=== PATIENT | female | born 1945 | race Caucasian/White ===

== ENCOUNTER 2016-10-17 13:14 | Outpatient (CLI) | payer MEDICARE, OTHER | END 2016-10-17 13:15 | disposition critical access hospital (66) | DX: M25.512 Pain in left shoulder (principal); W01.0XXA Fall on same level from slipping, tripping and stumbling without subsequent striking against object, initial encounter; Y92.59 Other trade areas as the place of occurrence of the external cause | CPT/HCPCS: A0425; A0429 ==

== ENCOUNTER 2016-10-17 13:36 | Emergency (ER) | payer MEDICARE, OTHER ==
[2016-10-17] MEDS ORDERED: HYDROmorphone 1 MG/ML SYRINGE IM STA (13:42)
[2016-10-17] MEDS ORDERED: ONDANSETRON ODT 4 MG TABLET TL STA (13:42)
[2016-10-17] MEDS ORDERED: ONDANSETRON ODT 4 MG TABLET ONE ×2 (13:50→13:51)
[2016-10-17] MEDS ORDERED: HYDROmorphone 1 MG/ML SYRINGE ONE ×2 (13:50→14:27)
[2016-10-17] MEDS ORDERED: HYDROmorphone 1 MG/ML SYRINGE IVP STA (14:21)
[2016-10-17] MEDS ORDERED: PROPOFOL 200 MG/20 ML VIAL IVP ONE (15:57)
[2016-10-17] MEDS ORDERED: SODIUM CHLORIDE 0.9% 1,000 ML IV ONE (16:09)
[2016-10-17] MEDS ORDERED: PROPOFOL 200 MG/20 ML VIAL IVP STA (16:10)
== END 2016-10-17 17:09 | disposition home or self-care (01) ==
DX: S43.015A Anterior dislocation of left humerus, initial encounter (principal); W01.0XXA Fall on same level from slipping, tripping and stumbling without subsequent striking against object, initial encounter; M25.812 Other specified joint disorders, left shoulder
CPT/HCPCS: 23650; 73030; 94770; 99152; 99284; J1170; Q0162

== ENCOUNTER 2017-06-26 08:00 | Outpatient (CLI) | payer MEDICARE, OTHER ==
[2017-06-26 13:36] LABS: ALBUMIN 4.1 g/dL (3.2-5.5); ALBUMIN/GLOBULIN RATIO 1.2 (1.0-2.2); ALKALINE PHOSPHATASE 81 IU/L (42-121); ALT ALANINE AMINOTRANSFERASE 23 IU/L (10-60); AST ASPARTATE AMINOTRANSFERASE 23 IU/L (10-42); BILIRUBIN,TOTAL 0.5 mg/dL (0.2-1.0); BUN - BLOOD UREA NITROGEN 20 mg/dL (6-20); CARBON DIOXIDE - CO2 27 mmol/L (21-32); CHLORIDE 100 mmol/L (101-111); CHOL/HDL RATIO 4.7 (<4.4); CHOLESTEROL 147 mg/dL; CREATININE 0.9 mg/dL (0.4-1.0); GFR - MDRD 62 (>89); GLUCOSE 100 mg/dL (70-100); HDL CHOLESTEROL 31 mg/dL; LDL CHOLESTEROL,CALCULATED 83 mg/dL; LDL/HDL RATIO 2.7 (<4.4); SODIUM 135 mmol/L (135-145); TOTAL PROTEIN 7.5 g/dL (6.7-8.2); VLDL CHOLESTEROL 33 mg/dL
== END 2017-06-26 08:01 | disposition home or self-care (01) ==
LOC: LAB.WCP 08:00
PROVIDERS: ATTEND Physician Assistant Medical
DX: E03.9 Hypothyroidism, unspecified (principal); E78.2 Mixed hyperlipidemia; Z51.81 Encounter for therapeutic drug level monitoring; Z79.899 Other long term (current) drug therapy
CPT/HCPCS: 36415; 80053; 80061; 84443

== ENCOUNTER 2018-01-12 08:00 | Outpatient (CLI) | payer MEDICARE, OTHER ==
[2018-01-12 13:31] LABS: ALBUMIN 3.6 g/dL (3.2-5.5); ALBUMIN/GLOBULIN RATIO 0.9 (1.0-2.2); ALKALINE PHOSPHATASE 79 IU/L (42-121); ALT ALANINE AMINOTRANSFERASE 19 IU/L (10-60); AST ASPARTATE AMINOTRANSFERASE 22 IU/L (10-42); BUN - BLOOD UREA NITROGEN 18 mg/dL (6-20); CARBON DIOXIDE - CO2 26 mmol/L (21-32); CHLORIDE 100 mmol/L (101-111); CHOL/HDL RATIO 4.9 (<4.4); CHOLESTEROL 157 mg/dL; CREATININE 0.9 mg/dL (0.4-1.0); GFR - MDRD 61 (>89); GLUCOSE 98 mg/dL (70-100); HDL CHOLESTEROL 32 mg/dL; LDL CHOLESTEROL,CALCULATED 88 mg/dL; LDL/HDL RATIO 2.8 (<4.4); SODIUM 134 mmol/L (135-145); TOTAL PROTEIN 7.6 g/dL (6.7-8.2); VLDL CHOLESTEROL 37 mg/dL
[2018-01-12 13:55] LABS: BASOPHILS % (AUTO) 0.3 %; EOSINOPHILS # (AUTO) 0.3 10^3/uL (0.0-0.7); EOSINOPHILS % (AUTO) 2.9 %; HGB - HEMOGLOBIN 12.6 g/dL (12.0-16.0); LYMPHOCYTES # (AUTO) 3.4 10^3/uL (1.5-3.5); LYMPHOCYTES % (AUTO) 35.3 %; MEAN CORPUSCULAR HGB CONC 33.1 g/dL (32.0-36.0); MEAN CORPUSCULAR VOLUME 84.7 fL (81.0-99.0); MEAN PLATELET VOLUME 9.2 fL (7.9-10.8); MONOCYTES # (AUTO) 0.5 10^3/uL (0.0-1.0); MONOCYTES % (AUTO) 5.6 %; NEUTROPHILS # (AUTO) 5.3 10^3/uL (1.5-6.6); NEUTROPHILS % (AUTO) 55.9 %; PLT - PLATELET COUNT 308 10^3/uL (130-450); RED CELL DISTRIBUTION WIDTH 15.3 % (12.0-15.0); WHITE BLOOD COUNT 9.6 x10^3/uL (4.8-10.8)
[2018-01-12 14:26] LABS: RBC MORPHOLOGY (MULTIPLE) 2+ ANISOCYTOSIS (NORMAL)
[2018-01-13 13:17] LABS: HEPATITIS C ANTIBODY NON-REACTIVE (NON-REACTIVE)
== END 2018-01-12 08:01 | disposition home or self-care (01) ==
LOC: LAB.WCP 08:00
PROVIDERS: ATTEND Physician Assistant Medical
DX: E78.2 Mixed hyperlipidemia (principal); E03.9 Hypothyroidism, unspecified; H10.10 Acute atopic conjunctivitis, unspecified eye; Z11.59 Encounter for screening for other viral diseases
CPT/HCPCS: 36415; 80053; 80061; 83721; 84443; 85025; 86803

== ENCOUNTER 2018-03-09 10:37 | Outpatient (CLI) | payer MEDICARE, OTHER ==
--- NOTE | 2018-03-12 09:55 | Mammography Report ---
Reason: SCREENING MAMMO Procedure Date: 03/09/2018 Accession Number: [id number] / [id number] Procedure: FERDINAND - Screening Mammo Dig Bilat CPT Code: FULL RESULT: EXAM: Screening Mammo Dig Bilat DATE: 03/09/2018 11:59 AM CLINICAL HISTORY: 73-year-old female with history of benign lump removal in 1985 and family history of breast cancer in the mother at age 69. TECHNIQUE: Bilateral CC and MLO views were obtained. COMPARISON: 05/06/2016, 05/05/2015, 05/13/2013, 04/25/2012. FINDINGS: The breasts demonstrate scattered fibroglandular densities bilaterally. Post surgical changes including typically benign dystrophic calcifications are stable. There are coarse typically benign calcifications left breast. No suspicious masses, clustered microcalcifications, or regions of architectural distortion are identified. Evaluation of the left breast is incomplete as there is motion artifact degrading the left MLO view in the left CC view. IMPRESSION: Incomplete examination RECOMMENDATION: Additional evaluation as above. BIRADS CATEGORY 0: Incomplete examination STANDARD QUALIFYING STATEMENTS: 1. This examination was not reviewed with the aid of Computer-Aided Detection (CAD). 2. A negative or benign imaging report should not delay biopsy if clinically suspicious findings are present. Consider surgical consultation if warrented. More than 5% of cancers are not identified by imaging. 3. Dense breasts may obscure an underlying neoplasm.
== END 2018-03-09 10:38 | disposition home or self-care (01) ==
LOC: DI 10:37
PROVIDERS: ATTEND Radiology Diagnostic Radiology
DX: Z12.31 Encounter for screening mammogram for malignant neoplasm of breast (principal); Z80.3 Family history of malignant neoplasm of breast
CPT/HCPCS: 77067

== ENCOUNTER 2018-03-26 10:57 | Outpatient (CLI) | payer MEDICARE, OTHER ==
--- NOTE | 2018-04-10 14:18 | Mammography Report ---
Reason: TECH REPEAT - NO CHARGE - ROUTINE MAMMO Procedure Date: 03/26/2018 Accession Number: [id number] / [id number] Procedure: FERDINAND - Screening Mammo Dig Bilat CPT Code: FULL RESULT: FINDINGS: IMPRESSION: For results, please reference the 03/09/2018 addended screening mammogram report.
--- NOTE | 2018-04-10 14:20 | Mammography Report ---
Reason: TECH REPEAT - NO CHARGE - ROUTINE MAMMO Procedure Date: 03/26/2018 Accession Number: [id number] / [id number] Procedure: FERDINAND - No Charge Procedure CPT Code: FULL RESULT: FINDINGS: IMPRESSION: For results, please reference the 03/09/2018 addended screening mammogram report.
== END 2018-03-26 10:58 | disposition home or self-care (01) ==
LOC: DI 10:57
DX: Z12.31 Encounter for screening mammogram for malignant neoplasm of breast (principal); Z80.3 Family history of malignant neoplasm of breast
CPT/HCPCS: 77067

== ENCOUNTER 2019-04-10 15:16 | Outpatient (CLI) | payer MEDICARE, OTHER ==
--- NOTE | 2019-04-11 11:36 | Mammography Report ---
Reason: ROUTINE MAMMO Procedure Date: 04/10/2019 Accession Number: [id number] / [id number] Procedure: FERDINAND - Screening Mammo w/Charles CPT Code: FULL RESULT: EXAM: Screening Mammo w/Charles DATE: 04/10/2019 3:51 PM CLINICAL HISTORY: History of benign right breast surgery. For routine screening TECHNIQUE: (B) - Bilateral CC and MLO views were obtained. COMPARISON: 03/26/2018, 03/09/2018, 05/06/2016, 05/05/2015, 05/13/2013, 04/25/2012, 04/13/2011, 03/23/2010 PARENCHYMAL PATTERN: (A) - The breasts demonstrate scattered fibroglandular densities bilaterally. FINDINGS: No significant new findings. Postsurgical change with dystrophic calcifications right breast in the region of prior biopsy have slightly increased since preceding studies. Scattered benign-appearing punctate calcifications are stable. There are no suspicious masses, micro-calcifications, or new areas of distortion. IMPRESSION: Benign findings. BI-RADS category 2. RECOMMENDATION: (ANNUAL) - Recommend routine annual screening mammography. BI-RADS CATEGORY: (2) - Benign Findings. STANDARD QUALIFYING STATEMENTS: 1. This examination was not reviewed with the aid of Computer-Aided Detection (CAD). 2. A negative or benign imaging report should not preclude biopsy if clinically suspicious findings are present. 3. Dense breasts may obscure an underlying neoplasm. 4. This examination was reviewed with the aid of 3D breast imaging (tomosynthesis).
== END 2019-04-10 15:17 | disposition home or self-care (01) ==
LOC: DI 15:16
DX: Z12.31 Encounter for screening mammogram for malignant neoplasm of breast (principal)
CPT/HCPCS: 77063; 77067

== ENCOUNTER 2020-12-24 07:09 | Outpatient (CLI) | payer MEDICARE, OTHER ==
[2020-12-25 12:41] LABS: BASOPHILS # (AUTO) 0.1 10^3/uL (0.0-0.1); BASOPHILS % (AUTO) 0.7 %; EOSINOPHILS # (AUTO) 0.2 10^3/uL (0.0-0.7); EOSINOPHILS % (AUTO) 2.3 %; HCT - HEMATOCRIT 39.1 % (37.0-47.0); HGB - HEMOGLOBIN 12.5 g/dL (12.0-16.0); LYMPHOCYTES % (AUTO) 34.5 %; MEAN CORPUSCULAR HEMOGLOBIN 28.6 pg (27.0-31.0); MEAN CORPUSCULAR VOLUME 89.5 fL (81.0-99.0); MEAN PLATELET VOLUME 11.8 fL (7.9-10.8); MONOCYTES # (AUTO) 0.6 10^3/uL (0.0-1.0); MONOCYTES % (AUTO) 6.9 %; NEUTROPHILS # (AUTO) 4.7 10^3/uL (1.5-6.6); NEUTROPHILS % (AUTO) 55.4 %; PLT - PLATELET COUNT 326 10^3/uL (130-450); RED BLOOD COUNT 4.37 10^6/uL (4.20-5.40); RED CELL DISTRIBUTION WIDTH 14.7 % (12.0-15.0); WHITE BLOOD COUNT 8.6 x10^3/uL (4.8-10.8)
[2020-12-25 13:08] LABS: ALBUMIN 3.8 g/dL (3.2-5.5); ALBUMIN/GLOBULIN RATIO 1.1 (1.0-2.2); ALKALINE PHOSPHATASE 69 IU/L (42-121); ALT ALANINE AMINOTRANSFERASE 32 IU/L (10-60); AST ASPARTATE AMINOTRANSFERASE 28 IU/L (10-42); BILIRUBIN,TOTAL 0.9 mg/dL (0.2-1.0); BUN - BLOOD UREA NITROGEN 17 mg/dL (6-20); CALCIUM 9.3 mg/dL (8.5-10.3); CARBON DIOXIDE - CO2 29 mmol/L (21-32); CHLORIDE 101 mmol/L (101-111); CHOL/HDL RATIO 4.4 (<4.4); CHOLESTEROL 144 mg/dL; GFR - MDRD 54 (>89); GLUCOSE 101 mg/dL (70-100); HDL CHOLESTEROL 33 mg/dL; LDL CHOLESTEROL,CALCULATED 80 mg/dL; LDL/HDL RATIO 2.4 (<4.4); POTASSIUM 3.5 mmol/L (3.5-5.0); SODIUM 140 mmol/L (135-145); TOTAL PROTEIN 7.2 g/dL (6.7-8.2); TRIGLYCERIDES 153 mg/dL; VLDL CHOLESTEROL 31 mg/dL
[2020-12-25 13:10] LABS: THYROID STIMULATING HORMONE 3.74 uIU/mL (0.34-5.60)
== END 2020-12-25 23:59 | disposition home or self-care (01) ==
LOC: LAB.WCP 07:09
PROVIDERS: ATTEND Physician Assistant Medical
DX: E78.2 Mixed hyperlipidemia (principal); E03.9 Hypothyroidism, unspecified; I10 Essential (primary) hypertension
CPT/HCPCS: 36415; 80053; 80061; 83721; 84443; 85025

== ENCOUNTER 2021-01-01 00:56 | Outpatient (CLI) | payer MEDICARE, OTHER | END 2021-01-01 00:57 | disposition critical access hospital (66) | LOC: EMS 00:56 | DX: R05 Cough (principal); R06.02 Shortness of breath; R06.2 Wheezing; R23.1 Pallor | CPT/HCPCS: A0425; A0427 ==

== ENCOUNTER 2021-01-01 01:09 | Inpatient (IN) | payer MEDICARE, OTHER ==
--- NOTE | 2021-01-01 01:26 | ED Physician Documentation ---
PD HPI DYSPNEA - Stated complaint Stated Complaint: SOA - Chief complaint Chief Complaint: Critical Care - History obtained from History obtained from: Patient, Family, EMS - History of Present Illness Timing - onset: How many days ago (2-3) Timing - onset during: Rest Timing - details: Gradual onset, Waxing and waning Pain level max: 0 Pain level now: 0 Improved by: O2, Rest, Sitting up Worsened by: Exertion Associated symptoms: No: Fever, Cough, Hemoptysis, Wheezing, Chest pain / discomfort, Palpitations, Diaphoresis, Bilateral edema, Unilateral edema Similar symptoms before: Has not had sx before Recently seen: Not recently seen - Additional information Additional information: BIBA. Patient is in severe respiratory distress on arrival, cannot contribute to H+P/ROS (answers few questions with nodding/shaking head yes/no) Per EMS, patient called 911 tonight due to severe dyspnea that occurred when walking from bed to bathroom. EMS arrived to find patient tripoding, 80% pulse ox on room air, and had near-syncopal episode during initial assessment. Patient is not COVID vaccinated. She has h/o asthma and thus EMS gave duoneb en route followed by two albuterol nebs. Also given 125mg Solu-Medrol. Pulse ox improved to upper 80s-lower 90s, although on ED arrival she immediately desaturates just from transferring from EMS stretcher to ED stretcher. She is unable to speak even a word at a time. With placement of 100% NRB (15 l/min), her pulse ox improves to lower 90s Review of Systems Unable to obtain: Other (limited due to severe respiratory distress) Constitutional: denies: Fever Cardiac: denies: Chest pain / pressure, Pedal edema Respiratory: reports: Dyspnea. denies: Cough Musculoskeletal: denies: Extremity swelling PD PAST MEDICAL HISTORY - Past Medical History Cardiovascular: None Respiratory: None Endocrine/Autoimmune: None - Past Surgical History Past Surgical History: No - Present Medications Home Medications: Ambulatory Orders Medication Instructions Recorded Confirmed Albuterol Sulf [Ventolin Hfa 1 - 2 puffs INH Q4HR PRN 01/01/21 01/01/21 Inhaler] Aspirin EC [Ecotrin] 81 mg PO DAILY 01/01/21 01/01/21 Levothyroxine [Synthroid] 50 mcg PO QDAC 01/01/21 01/01/21 Metoprolol/Hydrochlorothiazide 1 each PO DAILY 01/01/21 01/01/21 [Lopressor Hct 50-25 Tablet] Simvastatin [Zocor] 20 mg PO DAILY 01/01/21 01/01/21 - Allergies Allergies/Adverse Reactions: Allergies Allergy/AdvReac Type Severity Reaction Status Date / Time No Known Drug Allergies Allergy Verified 10/17/16 13:43 - Social History Does the pt smoke?: No Smoking Status: Never smoker - Immunizations Immunizations are current?: Yes PD ED PE NORMAL - Vitals Vital signs reviewed: Yes - General General: Alert and oriented X 3, Well developed/nourished - Neck Neck: Supple, no meningeal sign - Abdomen Abdomen: Soft, Non tender - Extremities Extremities: No edema - Neuro Eye Opening: Spontaneous Motor: Obeys Commands Verbal: Oriented GCS Score: 15 PD ED PE EXPANDED - General General: Other (severe respiratory distress, anxious at times and trying to remove oxygen but she is redirectable) - Cardiac Cardiac: Tachy, Regular Rhythm - Respiratory Respiratory: Distress, Labored, Gasping, Accessory mm use, Rales (bilateral, diffusely) - Derm Derm: Pale, Diaphoretic Results - Vitals Vitals: Vital Signs - 24 hr 01/01/21 01/01/21 01/01/21 01:18 01:27 01:38 Temperature 36.7 C Heart Rate 102 H 123 H 121 H Respiratory 30 H 30 H Rate Blood Pressure 138/98 H 152/105 H O2 Saturation 83 L 95 01/01/21 01/01/21 02:15 03:20 Temperature Heart Rate 99 88 Respiratory 27 H Rate Blood Pressure 149/96 H O2 Saturation 95 Oxygen O2 Source Room air - EKG (time done) No standard instances Rate: Rate (enter#) (96) Rhythm: NSR, LAE [place]: Normal Intervals: Normal VA QRS: Normal Ischemia: ST depression (V5, V6, I, aVL), Q waves (V1-V3) - Labs Labs: Laboratory Tests 01/01/21 01/01/21 01/01/21 00:50 01:22 01:35 WBC 14.6 H RBC 4.25 Hgb 12.1 Hct 38.0 MCV 89.4 MCH 28.5 MCHC 31.8 L RDW 14.7 Plt Count 297 MPV 11.1 H Neut # (Auto) Not Reportable Lymph # (Auto) Not Reportable Moore # (Auto) Not Reportable Eos # (Auto) Not Reportable Baso # (Auto) Not Reportable Absolute Nucleated RBC Not Reportable Total Counted 100 Band Neuts % (Manual) 0 Abnorm Lymph % (Manual) 0 Nucleated RBC % Not Reportable Neutrophils # (Manual) 7.9 H Lymphocytes # (Manual) 6.0 H Monocytes # (Manual) 0.4 Eosinophils # (Manual) 0.3 Basophils # (Manual) 0.0 Differential Comment MANUAL DIFFERENTIAL WBC Morphology NORMAL APPEARANCE Platelet Estimate NORMAL (130-450,000) Platelet Morphology NORMAL APPEARANCE RBC Morph Micro Appear NORMAL APPEARANCE VBG pH VBG pCO2 VBG pO2 VBG HCO3 VBG Total CO2 VBG O2 Saturation VBG Base Excess Sodium Potassium Chloride Carbon Dioxide Anion Gap BUN Creatinine Estimated GFR (MDRD) Glucose Calcium Total Bilirubin AST ALT Alkaline Phosphatase Troponin I High Sens B-Natriuretic Peptide Total Protein Albumin Globulin Albumin/Globulin Ratio Lipase Nasal Adenovirus (PCR) NOT DETECTED Nasal B. parapertussis DNA (PCR) NOT DETECTED Nasal Coronavir 229E PCR NOT DETECTED Nasal Coronavir HKU1 PCR NOT DETECTED Nasal Coronavir NL63 PCR NOT DETECTED Nasal Coronavir OC43 PCR NOT DETECTED Nasal Enterovir/Rhinovir PCR NOT DETECTED Nasal Influenza B PCR NOT DETECTED Nasal Influenza A PCR NOT DETECTED Nasal Parainfluen 1 PCR NOT DETECTED Nasal Parainfluen 2 PCR NOT DETECTED Nasal Parainfluen 3 PCR NOT DETECTED Nasal Parainfluen 4 PCR NOT DETECTED Nasal RSV (PCR) NOT DETECTED Nasal Screen MRSA (PCR) NEGATIVE Nasal B.pertussis DNA PCR NOT DETECTED Nasal C.pneumoniae (PCR) NOT DETECTED Azael Human Metapneumo PCR NOT DETECTED Nasal M.pneumoniae (PCR) NOT DETECTED Nasal SARS-CoV-2 (PCR) NOT DETECTED 01/01/21 01/01/21 01/01/21 01:35 01:35 01:35 WBC RBC Hgb Hct MCV MCH MCHC RDW Plt Count MPV Neut # (Auto) Lymph # (Auto) Moore # (Auto) Eos # (Auto) Baso # (Auto) Absolute Nucleated RBC Total Counted Band Neuts % (Manual) Abnorm Lymph % (Manual) Nucleated RBC % Neutrophils # (Manual) Lymphocytes # (Manual) Monocytes # (Manual) Eosinophils # (Manual) Basophils # (Manual) Differential Comment WBC Morphology Platelet Estimate Platelet Morphology RBC Morph Micro Appear VBG pH 7.263 L VBG pCO2 39.0 L VBG pO2 117.6 H VBG HCO3 17.2 L VBG Total CO2 18.4 L VBG O2 Saturation 97.9 H VBG Base Excess -9.1 L Sodium 133 L Potassium 3.3 L Chloride 98 L Carbon Dioxide 17 L Anion Gap 18.0 H BUN 25 H Creatinine 1.6 H Estimated GFR (MDRD) 31 L Glucose 373 H Calcium 9.0 Total Bilirubin 0.6 AST 50 H ALT 61 H Alkaline Phosphatase 78 Troponin I High Sens 1387.5 H* B-Natriuretic Peptide Total Protein 7.1 Albumin 3.9 Globulin 3.2 Albumin/Globulin Ratio 1.2 Lipase 24 Nasal Adenovirus (PCR) Nasal B. parapertussis DNA (PCR) Nasal Coronavir 229E PCR Nasal Coronavir HKU1 PCR Nasal Coronavir NL63 PCR Nasal Coronavir OC43 PCR Nasal Enterovir/Rhinovir PCR Nasal Influenza B PCR Nasal Influenza A PCR Nasal Parainfluen 1 PCR Nasal Parainfluen 2 PCR Nasal Parainfluen 3 PCR Nasal Parainfluen 4 PCR Nasal RSV (PCR) Nasal Screen MRSA (PCR) Nasal B.pertussis DNA PCR Nasal C.pneumoniae (PCR) Azael Human Metapneumo PCR Nasal M.pneumoniae (PCR) Nasal SARS-CoV-2 (PCR) 01/01/21 01:35 WBC RBC Hgb Hct MCV MCH MCHC RDW Plt Count MPV Neut # (Auto) Lymph # (Auto) Moore # (Auto) Eos # (Auto) Baso # (Auto) Absolute Nucleated RBC Total Counted Band Neuts % (Manual) Abnorm Lymph % (Manual) Nucleated RBC % Neutrophils # (Manual) Lymphocytes # (Manual) Monocytes # (Manual) Eosinophils # (Manual) Basophils # (Manual) Differential Comment WBC Morphology Platelet Estimate Platelet Morphology RBC Morph Micro Appear VBG pH VBG pCO2 VBG pO2 VBG HCO3 VBG Total CO2 VBG O2 Saturation VBG Base Excess Sodium Potassium Chloride Carbon Dioxide Anion Gap BUN Creatinine Estimated GFR (MDRD) Glucose Calcium Total Bilirubin AST ALT Alkaline Phosphatase Troponin I High Sens B-Natriuretic Peptide 637 H Total Protein Albumin Globulin Albumin/Globulin Ratio Lipase Nasal Adenovirus (PCR) Nasal B. parapertussis DNA (PCR) Nasal Coronavir 229E PCR Nasal Coronavir HKU1 PCR Nasal Coronavir NL63 PCR Nasal Coronavir OC43 PCR Nasal Enterovir/Rhinovir PCR Nasal Influenza B PCR Nasal Influenza A PCR Nasal Parainfluen 1 PCR Nasal Parainfluen 2 PCR Nasal Parainfluen 3 PCR Nasal Parainfluen 4 PCR Nasal RSV (PCR) Nasal Screen MRSA (PCR) Nasal B.pertussis DNA PCR Nasal C.pneumoniae (PCR) Azael Human Metapneumo PCR Nasal M.pneumoniae (PCR) Nasal SARS-CoV-2 (PCR) - Rads (name of study) chest xray Radiology: Prelim report reviewed, See rad report PD MEDICAL DECISION MAKING - ED course Complexity details: reviewed old records, reviewed results, re-evaluated patient, considered differential, d/w patient, d/w family ED course: patient had significant improvement with placement of BiPAP with steadily improving pulse ox, eventually maintaining 96-98% pulse ox. her respiratory distress subsided and she was increasingly calm, comfortable, and smiling and answering questions later in ED stay. Pulmonary edema noted on CXR and she is given 40mg IV lasix. She repeatedly denies chest pain during ED stay. ST depressions noted on EKG. high sensitivity troponin is over 1300. I discussed this case with Dr. Valle (cardiology nutritionists at [facility]); he says patient can be admitted to [facility] for diuresis and ongoing telemetric observation, reconsider possible transfer if signs/symptoms worsen or EKG changes indicate AMI. D/W Dr. Hoover, will admit to [facility] Departure - Departure Disposition: 66 [facility] DC/Xfer Clinical Impression: Pulmonary edema Qualifiers: Chronicity: acute Qualified Code(s): J81.0 - Acute pulmonary edema Dyspnea Qualifiers: Dyspnea type: shortness of breath Qualified Code(s): R06.02 - Shortness of breath Condition: Stable Discharge Date/Time: 01/01/21 04:45
[2021-01-01 01:42] LABS: BASOPHILS % (AUTO) 0.3 %; EOSINOPHILS % (AUTO) 0.9 %; HGB - HEMOGLOBIN 12.1 g/dL (12.0-16.0); LYMPHOCYTES % (AUTO) 37.5 %; MEAN CORPUSCULAR HEMOGLOBIN 28.5 pg (27.0-31.0); MEAN CORPUSCULAR HGB CONC 31.8 g/dL (32.0-36.0); MEAN CORPUSCULAR VOLUME 89.4 fL (81.0-99.0); MEAN PLATELET VOLUME 11.1 fL (7.9-10.8); MONOCYTES % (AUTO) 2.1 %; NEUTROPHILS % (AUTO) 58.9 %; PLT - PLATELET COUNT 297 10^3/uL (130-450); RED BLOOD COUNT 4.25 10^6/uL (4.20-5.40); RED CELL DISTRIBUTION WIDTH 14.7 % (12.0-15.0); WHITE BLOOD COUNT 14.6 x10^3/uL (4.8-10.8)
[2021-01-01 01:46] LABS: ABNORMAL LYMPHS % (MANUAL) 0 %; BAND NEUTROPHILS % (MANUAL) 0 %
[2021-01-01 01:57] LABS: ALBUMIN 3.9 g/dL (3.2-5.5); ALBUMIN/GLOBULIN RATIO 1.2 (1.0-2.2); BILIRUBIN,TOTAL 0.6 mg/dL (0.2-1.0); CREATININE 1.6 mg/dL (0.4-1.0); POTASSIUM 3.3 mmol/L (3.5-5.0); TOTAL PROTEIN 7.1 g/dL (6.7-8.2)
[2021-01-01 02:01] LABS: EOSINOPHILS # (MANUAL) 0.3 10^3/uL (0-0.7); LYMPHOCYTES % (MANUAL) 41 %; MONOCYTES # (MANUAL) 0.4 10^3/uL (0.0-1.0); NEUTROPHILS # (MANUAL) 7.9 10^3/uL (1.5-6.6)
[2021-01-01 02:03] LABS: DIFFERENTIAL COMMENT MANUAL DIFFERENTIAL; PLATELET ESTIMATE, MANUAL NORMAL (130-450,000) (NORMAL); PLATELET MORPHOLOGY NORMAL APPEARANCE (NORMAL); RBC MORPHOLOGY (MULTIPLE) NORMAL APPEARANCE (NORMAL); WBC MORPHOLOGY (MULTIPLE) NORMAL APPEARANCE (NORMAL)
[2021-01-01 02:12] LABS: VBG HCO3 17.2 mmol/L (23-28); VBG PH 7.263 (7.31-7.41); VBG PO2 117.6 mmHg (25-47)
[2021-01-01 02:13] LABS: VBG BASE EXCESS -9.1 mmol/L (-2 - +2); VBG OXYGEN SATURATION 97.9 % (60-80); VBG TOTAL CO2 18.4 mmol/L (24-29)
[2021-01-01] MEDS ORDERED: NITROGLYCERIN 2% PASTE TOP STA (02:25)
[2021-01-01] MEDS ORDERED: FUROSEMIDE 40 MG/4 ML VIAL IVP STA (02:25)
[2021-01-01 02:42] LABS: B. PARAPERTUSSIS- RESP PCR PAN NOT DETECTED; B. PERTUSSIS- RESP PCR PANEL NOT DETECTED; C. PNEUMONIAE- RESP PCR PANEL NOT DETECTED; CORONAVIRUS 229E-RESP PCR NOT DETECTED; CORONAVIRUS HKU1-RESP PCR NOT DETECTED; CORONAVIRUS NL63-RESP PCR NOT DETECTED; CORONAVIRUS OC43-RESP PCR NOT DETECTED; HUMAN METAPNEUMOVIRUS NOT DETECTED; INFLUENZA A- RESP PCR PANEL NOT DETECTED; INFLUENZA B - RESP PCR PANEL NOT DETECTED; M. PNEUMONIAE- RESP PCR PANEL NOT DETECTED; PARAINFLUENZA VIRUS 1 NOT DETECTED; PARAINFLUENZA VIRUS 2 NOT DETECTED; PARAINFLUENZA VIRUS 3 NOT DETECTED; PARAINFLUENZA VIRUS 4 NOT DETECTED; RHINOVIRUS/ENTEROVIRUS NOT DETECTED; RSV- RESP PCR PANEL NOT DETECTED; SARS-CoV-2 -RESP PCR PANEL NOT DETECTED
[2021-01-01] MEDS ORDERED: ONDANSETRON 4 MG/2 ML VIAL IVP STA (03:14)
[2021-01-01] MEDS ORDERED: HYDROcod/ACETAM 5/325 MG TABLET PO PRN (03:49)
[2021-01-01] MEDS ORDERED: ONDANSETRON 4 MG/2 ML VIAL IVP PRN (03:49)
[2021-01-01] MEDS ORDERED: IPRATROPIUM 0.2 MG/ML NEB INH PRN (03:49)
[2021-01-01] MEDS ORDERED: ACETAMINOPHEN 325 MG TABLET PO PRN (03:49)
--- NOTE | 2021-01-01 04:07 | HISTORY & PHYSICAL EXAMINATION ---
Chief Complaint - Chief Complaint Chief Complaint: Shortness of breath on exertion History of Present Illness - Admitted From Admitted From:: Emergency department - History Obtained From Records Reviewed: Emergency department History obtained from: Dr. Alvarado and patient Exam Limitations: None - History of Present Illness HPI Comment/Other: Patient is a 75-year-old female with a past medical history of obesity, hypertension, hyperlipidemia, and hypothyroidism, who denies any known history of cardiac disease who presents to the emergency room with relatively abrupt onset of dyspnea on exertion since earlier this evening. Patient states over the last month or longer she has had a progressive shortness of breath on ex ertion and orthopnea that was relatively mild but has worsened but tonight had an abrupt sudden onset when she went to the bathroom after going to bed and relates she was having significant difficulty breathing. She was brought in by paramedics and found to be saturating 80% on room air and demonstrating evidence of acute respiratory distress with accessory muscle use. Per Dr. Alvarado in the ED her presentation initially suggested she may need to be intubated due to significant work of breathing. However in the ER she responded well to CPAP and has since stabilized. Patient denies any chest pain, fever, nausea, vomiting, chills.In the ED work-up was remarkable for leukocytosis, WBC of 14.6, as well as elevated troponin [id number] along with a BNP of 637. She also had mild hyponatremia at 133 and mild hypokalemia at 3.3 and a creatinine of 1.6 with an estimated GFR of 31 with an unknown baseline.At the time admission was requested patient was able to speak in a relatively full sentences without distress or difficulty and much more comfortable with BiPAP. Chest x-ray was done which showed suggestion of probable CHF exacerbation. She received a dose of furosemide 40 mg IV in the E D. Covid test was negative. Given patient's respiratory distress with chest x-ray findings suggestive of CHF and elevated troponin level, Dr. Alvarado did reach out to [facility] for cardiology consideration of transfer however on-call contact lens blocker there did not feel like at this point there is imminent need for transfer given that she has improved, suggested following cardiac enzymes, considering stress test but getting an echocardiogram and providing medical diuresis and to call back for transfer should there be any new developments or worsening in her clinical status. As far as anticoagulation he left the decision to us but did not feel like this was absolutely necessary and felt like her cardiac enzyme elevation was less likely due to ischemia and more likely due to CHF exacerbation and should respond well to diuresis. At this point after discussion with Dr. Alvarado it was agreed that we could try to manage the patient medically here, get an echocardiogram in the morning, consider stress test pending renal function and follow cardiac enzymes and telemetry with further management pending Onikul course and test results. History - Past Medical History Cardiovascular: reports: None Respiratory: reports: None Endocrine/Autoimmune: reports: None - Family & Social History Family History Comment/Other: Patient reports her father had a heart attack at the age of 80, Denies any other family history Living arrangement: At home Living Situation: With spouse/s.o. - Substance History Use: Uses substance without health or social issues: NONE - POLST Patient has POLST: No POLST Status: Full Code Meds/Allgy - Home Medications Home Medications: Ambulatory Orders Medication Instructions Recorded Confirmed Albuterol Sulf [Ventolin Hfa 1 - 2 puffs INH Q4HR PRN 01/01/21 01/01/21 Inhaler] Aspirin EC [Ecotrin] 81 mg PO DAILY 01/01/21 01/01/21 Levothyroxine [Synthroid] 50 mcg PO QDAC 01/01/21 01/01/21 Metoprolol/Hydrochlorothiazide 1 each PO DAILY 01/01/21 01/01/21 [Lopressor Hct 50-25 Tablet] Simvastatin [Zocor] 20 mg PO DAILY 01/01/21 01/01/21 - Allergies Allergies/Adverse Reactions: Allergies Allergy/AdvReac Type Severity Reaction Status Date / Time No Known Drug Allergies Allergy Verified 10/17/16 13:43 Review of Systems - Cardiovascular Cariovascular: denies: Irregular heart rate, Palpitations, Chest pain - Respiratory Respiratory: reports: Orthopnea, SOB at rest, SOB with exertion. denies: Cough, Sputum production, Wheezing - Gastrointestinal Gastrointestinal: denies: Abdominal pain - All Other Systems All Other Systems: reports: Reviewed and negative Prior Level of Functionality: Fully ambulatory and independent Exam - Vital Signs Reviewed Vital Signs: Yes Vital Signs: Vital Signs x48h Temp Pulse Resp BP Pulse Ox 01/01/21 03:20 88 01/01/21 02:15 99 27 H 149/96 H 95 01/01/21 01:38 121 H 30 H 152/105 H 95 01/01/21 01:27 123 H 01/01/21 01:18 36.7 C 102 H 30 H 138/98 H 83 L - Physical Exam General Appearance: positive: No acute distress, Alert Eyes Bilateral: positive: Normal inspection ENT: positive: ENT inspection nml Neck: positive: Nml inspection, Thyroid nml, No JVD Respiratory: positive: Chest non-tender Cardiovascular: positive: Regular rate & rhythm, No murmur, No gallop Peripheral Pulses: positive: 2+ Abdomen: positive: Non-tender, No organomegaly, Nml bowel sounds Skin: positive: Color nml, No rash, Warm Extremities: positive: Nml appearance, No pedal edema Neurologic/Psychiatric: positive: Oriented x3, CN's nml (2-12) Sepsis Event Note (H) - Evaluation Current Stage of Sepsis: Ruled out Conclusion/Plan - Problem List (1) Acute respiratory failure with hypoxia Conclusion/Plan: Patient presents with clinical features of acute exacerbation of congestive heart failure but does not have a known history of CHF. Admit to ICU given significant respiratory distress on admission and current BiPAP dependent status. Continue BiPAP and wean as tolerated. Continue diuresis initiated in the ED, for now Lasix 40 mg IV twice daily. Echocardiogram ordered. Pending renal function, consider stress test prior to discharge for evaluation of ischemic versus nonischemic cardiomyopathy if CHF demonstrated on echocardiogram. Cannot rule out pulmonary embolus but given current renal function will avoid CT angiogram of chest. If available, try for VQ scan. For now, given uncertainty of etiology of respiratory failure as well as elevation of cardiac enzymes, will err on the side of caution and start therapeutic Lovenox to be decreased to prophylactic dosing pending further results and clinical course. (2) Cardiac enzymes elevated Conclusion/Plan: Case discussed with contact lens blocker on-call at [facility] who does not feel there is a urgent need for transfer, angiography, or even stress testing. Recommends echocardiogram for further work-up of presumed CHF. We will trend cardiac enzymes and monitor symptoms, and may consider escalating care if patient becomes symptomatic with chest pain, etc. Otherwise, for now, keep on telemetry pending results of echocardiogram and cardiac enzymesmay warrant stress test prior to discharge. (3) Acute kidney injury Conclusion/Plan: Current BUN 25, creatinine 1.6, appears to have baseline within normal limits. CLARKE may be secondary to cardiorenal syndrome given pulmonary edema and suggestion of CHF on admission. Avoid nephrotoxic agents. Avoid contrast studies that are otherwise unnecessary. Repeat labs daily. Monitor I's and O's. (4) Leukocytosis Conclusion/Plan: WBC is elevated at 14.6. Afebrile, no cough, no clinical suggestion of infection. Check UA. Hold off on antibiotics for now given leukocytosis may be stress reaction from acute CHF exacerbation. Monitor for fevers and repeat CBC daily and if any other worsening signs of infection start empiric antibiotics pending results of UA. (5) Hypertension Conclusion/Plan: Blood pressure relatively stable. Resume home medications. (6) Hyperlipidemia Conclusion/Plan: Resume home statin. (7) Hypothyroidism Conclusion/Plan: Check TSH and free T4 given pulmonary edema. Resume home levothyroxine in the meantime. (8) Pulmonary edema Conclusion/Plan: As above likely secondary to CHF exacerbation. See above for plan Qualifiers: Chronicity: acute Qualified Code(s): J81.0 - Acute pulmonary edema - Lab Results Fish Bones: 01/01/21 01:35 01/01/21 01:35 - Diagnostic Imaging Results Diagnostic Imaging Results: positive: Prelim report reviewed - EKG Results EKG Interpreted Independently: Yes Core Measures - Anticipated LOS I expect patient to be DC'd or transferred within 96 hours.: Yes - DVT/VTE - Prophylaxis VTE/DVT Device ordered at admit?: Yes
[2021-01-01] MEDS: SODIUM CHLORIDE FLUSH 0.9% 10 ML SYRINGE IVP PRN (05:31)
[2021-01-01 05:48] LABS: BASOPHILS % (AUTO) 0.2 %; HCT - HEMATOCRIT 35.9 % (37.0-47.0); HGB - HEMOGLOBIN 11.8 g/dL (12.0-16.0); LYMPHOCYTES # (AUTO) 0.7 10^3/uL (1.5-3.5); LYMPHOCYTES % (AUTO) 4.4 %; MEAN CORPUSCULAR HEMOGLOBIN 28.9 pg (27.0-31.0); MEAN CORPUSCULAR HGB CONC 32.9 g/dL (32.0-36.0); MEAN CORPUSCULAR VOLUME 87.8 fL (81.0-99.0); MEAN PLATELET VOLUME 10.6 fL (7.9-10.8); MONOCYTES # (AUTO) 0.4 10^3/uL (0.0-1.0); MONOCYTES % (AUTO) 2.6 %; NEUTROPHILS # (AUTO) 15.4 10^3/uL (1.5-6.6); NEUTROPHILS % (AUTO) 92.3 %; PLT - PLATELET COUNT 299 10^3/uL (130-450); RED BLOOD COUNT 4.09 10^6/uL (4.20-5.40); RED CELL DISTRIBUTION WIDTH 14.7 % (12.0-15.0); WHITE BLOOD COUNT 16.7 x10^3/uL (4.8-10.8)
[2021-01-01] MEDS: LEVOTHYROXINE 25 MCG TABLET PO SCH (06:40)
[2021-01-01] MEDS: ASPIRIN EC 81 MG TABLET PO SCH (08:29)
[2021-01-01] MEDS: ENOXAPARIN 100 MG/ML SYRINGE SUBQ SCH ×2 (08:29→20:26)
[2021-01-01] MEDS: POTASSIUM CHLORIDE 20 MEQ TABLET PO SCH (08:29)
[2021-01-01] MEDS: SODIUM CHLORIDE FLUSH 0.9% 10 ML SYRINGE IVP SCH ×3 (08:30→20:27)
[2021-01-01] MEDS: FAMOTIDINE 20 MG/2 ML VIAL IVP SCH ×2 (08:40→20:25)
[2021-01-01] MEDS ORDERED: METOPROLOL SUCCINATE 25 MG TABLET PO SCH (09:00)
[2021-01-01] MEDS ORDERED: hydroCHLOROthiazide 25 MG TABLET PO SCH (09:00)
[2021-01-01] MEDS ORDERED: FUROSEMIDE 40 MG/4 ML VIAL IVP SCH (09:00)
[2021-01-01] MEDS ORDERED: NON FORMULARY MED (Simvastatin [Zocor] 20 MG Tablet) PO SCH (09:00)
[2021-01-01] MEDS ORDERED: HYDROCHLOROTHIAZIDE PO SCH (09:00)
[2021-01-01] MEDS ORDERED: METOPROLOL TARTRATE PO SCH (09:00)
[2021-01-01] MEDS ORDERED: [UNRECOGNIZED DRUG - OTHER] PO SCH (09:00)
[2021-01-01] MEDS ORDERED: METOPROLOL TARTRATE 50 MG TABLET PO SCH ×2 (09:00)
--- NOTE | 2021-01-01 10:31 | PHARMACY PROGRESS NOTE ---
- Best Possible Medication History Admit Date and Time: 01/01/21 0349 Processed by: Nursing Medication History completed: Yes Patient Interview: Completed (MED REC COMPLETED BY NURSING) As the person ultimately responsible for medication therapy, providers are able to order a medication from an existing home medication list in [facility] via the "Reconcile Routine" prior to Confirmation of that medication by ground support equipment assembler. Such practice is discouraged except when the physician, in their clinical judgment, deems that a medical need exists for a medication without regard to previous use.
[2021-01-01 11:53] LABS: ESTIMATED AVERAGE GLUCOSE 123 mg/dL (70-100); HEMOGLOBIN A1c% 5.9 % (4.27-6.07)
--- NOTE | 2021-01-01 12:07 | XRAY Report ---
PROCEDURE: Chest 1 View X-Ray INDICATIONS: Chest pain TECHNIQUE: One view of the chest was acquired. COMPARISON: None FINDINGS: Surgical changes and devices: None. Lungs and pleura: Hazy bilateral pulmonary opacities are present. Increased pulmonary vascularity is present. Mediastinum: Mediastinal contours appear normal. Heart size is enlarged. Bones and chest wall: No suspicious bony lesions. Overlying soft tissues appear unremarkable. IMPRESSION: Bilateral opacities suggestive of effusion and edema. Underlying areas of pneumonia cannot be exclud ed. Reviewed by: Melissa Huff MD on 01/01/2021 12:06 PM PDT Approved by: Melissa Huff MD on 01/01/2021 12:06 PM PDT Station ID: [id number]
--- NOTE | 2021-01-01 12:32 | Nuclear Medicine Report ---
PROCEDURE: Lung Vent/Perf V/Q INDICATIONS: Acute hypoxia, Tachycardia, rule out PE RADIOPHARMACEUTICAL: 42.1 mCi Tc-99m DTPA aerosol by inhalation and 4.3 mCi Tc-99m MAA intravenously . TECHNIQUE: Ventilation images were obtained first with Tc-99m DTPA aerosol. Subsequently, perfusion images were acquired after intravenous injection of Tc-99m MAA. Anterior, posterior, NICHOLS, ALEXANDRO, RPO, LPO, left and right lateral views were obtained. COMPARISON: None available. FINDINGS: Uniform distribution of perfusion radiopharmaceutical with no mismatch perfusion defect. T here is some clumping/trapping of the ventilated radiopharmaceutical within the trachea and proximal airways. IMPRESSION: No evidence of pulmonary embolus. Reviewed by: Dennis Uribe MD on 01/01/2021 12:31 PM PDT Approved by: Dennis Uribe MD on 01/01/2021 12:31 PM PDT Station ID: [id number]
[2021-01-01] MEDS: INSULIN ASPART 300 UNIT/3 ML PEN SUBQ SCH ×3 (13:00→20:28)
[2021-01-01] MEDS ORDERED: NITROGLYCERIN SL 0.4 MG TABLET SL PRN (17:48)
[2021-01-01] MEDS: carvediloL 3.125 MG TABLET PO SCH (20:25)
[2021-01-01] MEDS: ATORVASTATIN 40 MG TABLET PO SCH (20:26)
[2021-01-01] MEDS ORDERED: ATORVASTATIN 10 MG TABLET PO SCH (21:00)
[2021-01-01 21:54] LABS: BILIRUBIN,URINE NEGATIVE (NEGATIVE); GLUCOSE, URINE (UA) NEGATIVE (NEGATIVE); KETONES,URINE (UA) NEGATIVE (NEGATIVE); LEUKOCYTE ESTERASE, URINE TRACE (NEGATIVE); NITRITE,URINE NEGATIVE (NEGATIVE); OCCULT BLOOD,URINE NEGATIVE (NEGATIVE); PH,URINE 5.5 PH (5.0-7.5); PROTEIN,URINE NEGATIVE (NEGATIVE); UROBILINOGEN,URINE 0.2 (NORMAL) E.U./dL (NORMAL)
[2021-01-01 21:58] LABS: BACTERIA,URINE Rare /HPF (None Seen); CLARITY,URINE SL. CLOUDY (CLEAR); MUCUS,URINE Few Strands; RBC,URINE 0-5 /HPF (0-5); SQUAMOUS EPITHELIAL CELL,UR FEW Squamous (<= Few)
[2021-01-01 21:59] LABS: CASTS, URINE 0-2 Hyaline Casts /LPF
[2021-01-02] MEDS ORDERED: FUROSEMIDE 40 MG/4 ML VIAL IVP SCH (06:00)
[2021-01-02] MEDS: LEVOTHYROXINE 25 MCG TABLET PO SCH (06:08)
[2021-01-02] MEDS: SODIUM CHLORIDE FLUSH 0.9% 10 ML SYRINGE IVP PRN (06:09)
[2021-01-02 06:33] LABS: HCT - HEMATOCRIT 31.4 % (37.0-47.0); HGB - HEMOGLOBIN 10.2 g/dL (12.0-16.0); MEAN CORPUSCULAR HEMOGLOBIN 28.5 pg (27.0-31.0); MEAN CORPUSCULAR HGB CONC 32.5 g/dL (32.0-36.0); MEAN CORPUSCULAR VOLUME 87.7 fL (81.0-99.0); RED BLOOD COUNT 3.58 10^6/uL (4.20-5.40); RED CELL DISTRIBUTION WIDTH 14.8 % (12.0-15.0); WHITE BLOOD COUNT 16.7 x10^3/uL (4.8-10.8)
[2021-01-02 06:44] LABS: CALCIUM 8.5 mg/dL (8.5-10.3); CREATININE 1.2 mg/dL (0.4-1.0); POTASSIUM 3.4 mmol/L (3.5-5.0)
[2021-01-02 06:53] LABS: CHOL/HDL RATIO 3.7 (<4.4); CHOLESTEROL 121 mg/dL; HDL CHOLESTEROL 33 mg/dL; LDL CHOLESTEROL,CALCULATED 71 mg/dL; LDL/HDL RATIO 2.2 (<4.4); MAGNESIUM 1.9 mg/dL (1.7-2.8); PHOSPHORUS 4.3 mg/dL (2.5-4.6); TRIGLYCERIDES 87 mg/dL; VLDL CHOLESTEROL 17 mg/dL
[2021-01-02] MEDS ORDERED: NON FORMULARY MED (Albuterol Sulf [Ventolin Hfa Inhaler] 200 PUFFS/18 GM Inhaler) INH PRN (08:19)
--- NOTE | 2021-01-02 08:23 | PROVIDER PROGRESS NOTE ---
Assessment/Plan - Problem List (1) Acute non-ST elevation myocardial infarction (NSTEMI) Assessment/Plan: When I met her and we discussed that she ruled in for an DC, she did admit that there were episodes of chest pressure in the left anterior chest associated with diaphoresis when she was short of breath on the night of admission. Troponins increased substantially and peaked at 4400+. EKG changes showed diffuse ST segment abnormalities and she already had QS waves in the anteroseptal leads. Echo done yesterday shows LVEF of 35%. We will continue with daily aspirin, therapeutic Lovenox twice daily, she has been started on beta-kelly and her statin was changed to Lipitor. We will continue with gentle diuresis and sublingual nitroglycerin as needed angina. We will plan to reach out for transfer for coronary angiogram at a tertiary care center. (2) Pulmonary edema Qualifiers: Chronicity: acute Qualified Code(s): J81.0 - Acute pulmonary edema Assessment/Plan: She presented with shortness of breath and a VQ scan was done and ruled out a PE. Her chest x-ray showed CHF and the etiology appears to be the acute DC. Continue with diuresis but will change from IV twice daily Lasix to once daily oral Lasix because of soft blood pressures of 100-1 10 systolic. Follow I's and O's and daily weights (3) Acute combined systolic and diastolic congestive heart failure Assessment/Plan: Her BNP has increased from 300s to 800s today, which I suspect is a delay7 in lab findings compared to clinical status. An Echo was done yesterday that showed LVEF of 35%. She also has significant diastolic dysfunction by Echo. We will continue with Lasix. We have started spironolactone, and Coreg, will add a low-dose of COURTNEY or ARB, watching her very soft blood pressure. It will need to be staggered. Continue monitoring I's and O's, daily weights and watching electrolytes and magnesium daily. (4) Cardiorenal syndrome Assessment/Plan: She presented with a creatinine of 1.6 and today that has improved to 1.2 with diuresis. This is consistent with cardiorenal syndrome. We will continue with the plan for CHF management as above. Avoid nephrotoxins. Follow BMP daily (5) Hyponatremia Assessment/Plan: She has hypervolemic hyponatremia. She may also have a component of pseudohyponatremia from very elevated glucose of 363 on admission Continue with Lasix and have added spironolactone. Will also institute a fluid restriction of 2000 cc/day total Follow BMP daily (6) Hypokalemia Assessment/Plan: Related to aggressive IV diuresis. We will replace potassium. Follow BMP daily (7) Hx of essential hypertension Assessment/Plan: She was on a combination of HCTZ metoprolol tablet. Here she is on Coreg for her beta-kelly and the HCTZ has been stopped since she needs Lasix plus Spironolactone. With this her blood pressures are actually "soft", 102 systolic. Will start the ARB, it will need to be staggered. (8) Borderline diabetes mellitus Assessment/Plan: She presented with a very elevated serum glucose level of 363. Her A1c was checked and is 5.9. She was put on a sliding scale insulin and has already used 1 unit of regular insulin. The daughter revealed that the patient eats sugar all the time. Will discuss a better diet and keep her on carb controlled diet while here. She will not have Metformin or oral agent because she will be undergoing ang iogram requiring dye and because creatinine is still elevated. With education and diet, her borderline diabetes may continue to be under control. (9) Hypothyroidism Assessment/Plan: Her TSH and T4 levels were acceptable. We are continuing her home dose of Sy nthroid - Current Meds Current Meds: Current Medications Generic Name Dose Route Start Last Admin Trade Name Freq PRN Reason Stop Dose Admin Acetaminophen 650 mg 01/01/21 03:49 01/02/21 01:12 Acetaminophen 325 Mg Tablet PO 650 mg Q4HR PRN Administration Pain 1 to 4 Aspirin 81 mg 01/01/21 09:00 01/01/21 08:29 Aspirin Ec 81 Mg Tablet PO 81 mg DAILY STEPHANIE Administration Atorvastatin Calcium 40 mg 01/01/21 21:00 01/01/21 20:26 Atorvastatin 40 Mg Tablet PO 40 mg QPM STEPHANIE Administration Carvedilol 6.25 mg 01/01/21 21:00 01/01/21 20:25 Carvedilol 3.125 Mg Tablet PO 6.25 mg BID STEPHANIE Administration Enoxaparin Sodium 90 mg 01/01/21 09:00 01/01/21 20:26 Enoxaparin 100 Mg/Ml Syringe SUBQ 90 mg BID STEPHANIE Administration Insulin Aspart 1 - 5 unit 01/01/21 12:00 01/01/21 20:28 Insulin Aspart 300 Unit/3 Ml Pen SUBQ 1 unit 0800,1200,1700,2100 STEPHANIE Administration Protocol Levothyroxine Sodium 50 mcg 01/01/21 07:00 01/02/21 06:08 Levothyroxine 25 Mcg Tablet PO 50 mcg QDAC STEPHANIE Administration Potassium Chloride 20 meq 01/01/21 09:00 01/01/21 08:29 Potassium Chloride 20 Meq Tablet PO 20 meq DAILY STEPHANIE Administration Sodium Chloride 10 ml 01/01/21 09:00 01/01/21 20:27 Sodium Chloride Flush 0.9% 10 Ml Syringe IVP 10 ml 0100,0900,1700 STEPHANIE Administration Sodium Chloride 10 ml 01/01/21 03:49 01/02/21 06:09 Sodium Chloride Flush 0.9% 10 Ml Syringe IVP 10 ml PRN PRN Administration NEEDED PER PROVIDER ORDERS - Lab Result Fish Bone Diagrams: 01/02/21 04:32 01/02/21 04:32 - Additional Planning My Orders: My Active Orders 01/01/21 08:22 RT [Oxygen Therapy] [RC] .PRN 01/01/21 11:18 Initiate Hypoglycemia Protocol [RC] .protocol 01/01/21 12:00 Insulin Aspart [NovoLOG] 1 - 5 unit SUBQ 0800,1200,1700,2100 01/01/21 Dinner Carb-controlled Diet [DIET] 01/01/21 17:00 Blood Glucose Checks - Eating [RC] 0800,1200,1700,2100 01/01/21 17:48 Nitroglycerin [Nitrostat] 0.4 mg SL Q5MIN PRN 01/01/21 21:00 Atorvastatin [Lipitor] 40 mg PO QPM carvediloL [Coreg] 6.25 mg PO BID 01/02/21 05:00 TROPONIN I HIGH SENSITIVITY [IAI] Routine 01/02/21 08:19 Albuterol Sulf [Ventolin Hfa Inhaler] 2 puffs INH Q4HR PRN 01/02/21 09:00 Famotidine [Pepcid] 20 mg PO DAILY Furosemide [Lasix] 20 mg PO DAILY Potassium Chlor 10 Meq/100 ml [Potassium Chloride] 10 meq in 100 ml IV Q1H Spironolactone [Aldactone] 25 mg PO DAILY 01/03/21 05:00 BNP - B-NATRIURETIC PEPTIDE [IAI] DAILYLAB CBC W/O DIFF (HEMOGRAM) [HEME] DAILYLAB 01/04/21 05:00 BNP - B-NATRIURETIC PEPTIDE [IAI] DAILYLAB Subjective - Subjective Patient Reports: Feeling Better, Resting Comfortably, No Complaints (No angina or diaphoresis since admission) Objective Vital Signs: Vital Signs - 24 hr 01/01/21 01/01/21 01/01/21 10:35 12:00 15:00 Temperature 37.1 C Heart Rate Heart Rate [ 80 88 88 Monitoring electrodes] Respiratory 24 23 23 Rate Blood Pressure 131/74 H 109/68 113/79 [Right Brachial artery] O2 Saturation 93 94 94 01/01/21 01/01/21 01/01/21 16:48 18:00 21:00 Temperature 37.1 C 36.6 C Heart Rate 88 Heart Rate [ 82 81 Monitoring electrodes] Respiratory 18 25 H 19 Rate Blood Pressure 120/56 L 103/65 [Right Brachial artery] O2 Saturation 96 93 95 01/02/21 01/02/21 01/02/21 00:00 01:15 02:00 Temperature 36.6 C Heart Rate Heart Rate [ 76 77 70 Monitoring electrodes] Respiratory 23 24 23 Rate Blood Pressure 105/47 L 97/62 114/81 H [Right Brachial artery] O2 Saturation 94 95 96 01/02/21 01/02/21 01/02/21 03:00 04:00 05:00 Temperature Heart Rate Heart Rate [ 70 68 72 Monitoring electrodes] Respiratory 17 23 20 Rate Blood Pressure 103/51 L 108/59 L 103/53 L [Right Brachial artery] O2 Saturation 95 96 96 01/02/21 06:00 Temperature 36.6 C Heart Rate Heart Rate [ 72 Monitoring electrodes] Respiratory 20 Rate Blood Pressure 101/55 L [Right Brachial artery] O2 Saturation 96 Oxygen O2 Source Nasal cannula I&O (Last 24 Hrs): Intake and Output Totals x24h 12/31/20 01/01/21 01/02/21 23:59 23:59 23:59 Intake Total 860 450 Output Total 650 1100 Balance 210 -650 General: Alert, Oriented x3 HEENT: Mucous membr. moist/pink Neck: Supple, No JVD Neuro: Alert, Non Focal Cardiovascular: Regular rate, No murmurs Respiratory: No respiratory distress, Rales (R base posteriorly) Abdomen: Soft (Obese with pannus) Extremities: No clubbing, No edema - Results Results: Laboratory Results WBC 16.7 x10^3/uL (4.8-10.8) H 01/02/21 04:32 RBC 3.58 10^6/uL (4.20-5.40) L 01/02/21 04:32 Hgb 10.2 g/dL (12.0-16.0) L 01/02/21 04:32 Hct 31.4 % (37.0-47.0) L 01/02/21 04:32 MCV 87.7 fL (81.0-99.0) 01/02/21 04:32 MCH 28.5 pg (27.0-31.0) 01/02/21 04:32 MCHC 32.5 g/dL (32.0-36.0) 01/02/21 04:32 RDW 14.8 % (12.0-15.0) 01/02/21 04:32 Plt Count 236 10^3/uL (130-450) 01/02/21 04:32 MPV 12.0 fL (7.9-10.8) H 01/02/21 04:32 Neut # (Auto) 15.4 10^3/uL (1.5-6.6) H 01/01/21 05:37 Lymph # (Auto) 0.7 10^3/uL (1.5-3.5) L 01/01/21 05:37 [place] # (Auto) 0.4 10^3/uL (0.0-1.0) 01/01/21 05:37 Eos # (Auto) 0.0 10^3/uL (0.0-0.7) 01/01/21 05:37 Baso # (Auto) 0.0 10^3/uL (0.0-0.1) 01/01/21 05:37 Absolute Nucleated RBC 0.00 x10^3/uL 01/01/21 05:37 Total Counted 100 01/01/21 01:35 Band Neuts % (Manual) 0 % (0-10) 01/01/21 01:35 Abnorm Lymph % (Manual) 0 % 01/01/21 01:35 Nucleated RBC % 0.0 /100WBC 01/01/21 05:37 Neutrophils # (Manual) 7.9 10^3/uL (1.5-6.6) H 01/01/21 01:35 Lymphocytes # (Manual) 6.0 10^3/uL (1.5-3.5) H 01/01/21 01:35 Monocytes # (Manual) 0.4 10^3/uL (0.0-1.0) 01/01/21 01:35 Eosinophils # (Manual) 0.3 10^3/uL (0-0.7) 01/01/21 01:35 Basophils # (Manual) 0.0 10^3/uL (0-0.1) 01/01/21 01:35 Differential Comment MANUAL DIFFERENTIAL 01/01/21 01:35 WBC Morphology NORMAL APPEARANCE (NORMAL) 01/01/21 01:35 Platelet Estimate NORMAL (130-450,000) (NORMAL) 01/01/21 01:35 Platelet Morphology NORMAL APPEARANCE (NORMAL) 01/01/21 01:35 RBC Morph Micro Appear NORMAL APPEARANCE (NORMAL) 01/01/21 01:35 VBG pH 7.263 (7.31-7.41) L 01/01/21 01:35 VBG pCO2 39.0 mmHg (41-51) L 01/01/21 01:35 VBG pO2 117.6 mmHg (25-47) H 01/01/21 01:35 VBG HCO3 17.2 mmol/L (23-28) L 01/01/21 01:35 VBG Total CO2 18.4 mmol/L (24-29) L 01/01/21 01:35 VBG O2 Saturation 97.9 % (60-80) H 01/01/21 01:35 VBG Base Excess -9.1 mmol/L (-2 - +2) L 01/01/21 01:35 Sodium 132 mmol/L (135-145) L 01/02/21 04:32 Potassium 3.4 mmol/L (3.5-5.0) L 01/02/21 04:32 Chloride 94 mmol/L (101-111) L 01/02/21 04:32 Carbon Dioxide 26 mmol/L (21-32) 01/02/21 04:32 Anion Gap 12.0 (6-13) 01/02/21 04:32 BUN 32 mg/dL (6-20) H 01/02/21 04:32 Creatinine 1.2 mg/dL (0.4-1.0) H 01/02/21 04:32 Estimated GFR (MDRD) 44 (>89) L 01/02/21 04:32 Glucose 126 mg/dL (70-100) H 01/02/21 04:32 Estimat Average Glucose 123 mg/dL (70-100) H 01/01/21 05:37 Hemoglobin A1c % 5.9 % (4.27-6.07) 01/01/21 05:37 Calcium 8.5 mg/dL (8.5-10.3) 01/02/21 04:32 Phosphorus 4.3 mg/dL (2.5-4.6) 01/02/21 04:32 Magnesium 1.9 mg/dL (1.7-2.8) 01/02/21 04:32 Total Bilirubin 0.6 mg/dL (0.2-1.0) 01/01/21 01:35 AST 50 IU/L (10-42) H 01/01/21 01:35 ALT 61 IU/L (10-60) H 01/01/21 01:35 Alkaline Phosphatase 78 IU/L (42-121) 01/01/21 01:35 Troponin I High Sens 4464.1 ng/L (2.3-14.8) H* 01/01/21 18:29 B-Natriuretic Peptide 880 pg/mL (5-100) H 01/02/21 04:32 Total Protein 7.1 g/dL (6.7-8.2) 01/01/21 01:35 Albumin 3.9 g/dL (3.2-5.5) 01/01/21 01:35 Globulin 3.2 g/dL (2.1-4.2) 01/01/21 01:35 Albumin/Globulin Ratio 1.2 (1.0-2.2) 01/01/21 01:35 Triglycerides 87 mg/dL (-149) 01/02/21 04:32 Cholesterol 121 mg/dL (-199) 01/02/21 04:32 LDL Cholesterol, Calc 71 mg/dL (-129) 01/02/21 04:32 VLDL Cholesterol 17 mg/dL 01/02/21 04:32 HDL Cholesterol 33 mg/dL (60-) L 01/02/21 04:32 LDL/HDL Ratio 2.2 (<4.4) 01/02/21 04:32 Cholesterol/HDL Ratio 3.7 (<4.4) 01/02/21 04:32 Lipase 24 U/L (22-51) 01/01/21 01:35 TSH 1.78 uIU/mL (0.34-5.60) 01/01/21 07:34 Free T4 1.24 ng/dL (0.58-1.64) 01/01/21 07:34 Urine Color YELLOW 01/01/21 19:27 Urine Clarity SL. CLOUDY (CLEAR) 01/01/21 19:27 Urine pH 5.5 PH (5.0-7.5) 01/01/21 19:27 Ur Specific [place] 1.020 (1.002-1.030) 01/01/21 19:27 Urine Protein NEGATIVE mg/dL (NEGATIVE) 01/01/21 19:27 Urine Glucose (UA) NEGATIVE mg/dL (NEGATIVE) 01/01/21 19:27 Urine Ketones NEGATIVE mg/dL (NEGATIVE) 01/01/21 19:27 Urine Occult Blood NEGATIVE (NEGATIVE) 01/01/21 19:27 Urine Nitrite NEGATIVE (NEGATIVE) 01/01/21 19:27 Urine Bilirubin NEGATIVE (NEGATIVE) 01/01/21 19:27 Urine Urobilinogen 0.2 (NORMAL) E.U./dL (NORMAL) 01/01/21 19:27 Ur Leukocyte Esterase TRACE (NEGATIVE) H 01/01/21 19:27 Urine RBC 0-5 /HPF (0-5) 01/01/21 19:27 Urine WBC 4-5 /HPF (0-5) 01/01/21 19:27 Ur Squamous Epith Cells FEW Squamous (<= Few) 01/01/21 19:27 Urine Bacteria Rare /HPF (None Seen) 01/01/21 19:27 Urine Casts 0-2 Hyaline Casts /LPF 01/01/21 19:27 Urine Mucus Few Strands 01/01/21 19:27 Ur Microscopic Review INDICATED 01/01/21 19:27 Urine Culture Comments INDICATED 01/01/21 19:27 Nasal Adenovirus (PCR) NOT DETECTED 01/01/21 01:22 Nasal B. parapertussis DNA (PCR) NOT DETECTED 01/01/21 01:22 Nasal Coronavir 229E PCR NOT DETECTED 01/01/21 01:22 Nasal Coronavir HKU1 PCR NOT DETECTED 01/01/21 01:22 Nasal Coronavir NL63 PCR NOT DETECTED 01/01/21 01:22 Nasal Coronavir OC43 PCR NOT DETECTED 01/01/21 01:22 Nasal Enterovir/Rhinovir PCR NOT DETECTED 01/01/21 01:22 Nasal Influenza B PCR NOT DETECTED 01/01/21 01:22 Nasal Influenza A PCR NOT DETECTED 01/01/21 01:22 Nasal Parainfluen 1 PCR NOT DETECTED 01/01/21 01:22 Nasal Parainfluen 2 PCR NOT DETECTED 01/01/21 01:22 Nasal Parainfluen 3 PCR NOT DETECTED 01/01/21 01:22 Nasal Parainfluen 4 PCR NOT DETECTED 01/01/21 01:22 Nasal RSV (PCR) NOT DETECTED 01/01/21 01:22 Nasal Screen MRSA (PCR) NEGATIVE (NEGATIVE) 01/01/21 00:50 Nasal B.pertussis DNA PCR NOT DETECTED 01/01/21 01:22 Nasal C.pneumoniae (PCR) NOT DETECTED 01/01/21 01:22 Azael Human Metapneumo PCR NOT DETECTED 01/01/21 01:22 Nasal M.pneumoniae (PCR) NOT DETECTED 01/01/21 01:22 Nasal SARS-CoV-2 (PCR) NOT DETECTED 01/01/21 01:22 Sepsis Event Note (H) - Evaluation Current Stage of Sepsis: Ruled out
[2021-01-02] MEDS ORDERED: ALBUTEROL NEB 2.5 MG/3 ML INH PRN (08:24)
[2021-01-02] MEDS: INSULIN ASPART 300 UNIT/3 ML PEN SUBQ SCH ×4 (08:54→20:59)
[2021-01-02] MEDS ORDERED: FUROSEMIDE 20 MG TABLET PO SCH (09:00)
[2021-01-02] MEDS: ASPIRIN EC 81 MG TABLET PO SCH (09:07)
[2021-01-02] MEDS: SPIRONOLACTONE 25 MG TABLET PO SCH (09:08)
[2021-01-02] MEDS: ENOXAPARIN 100 MG/ML SYRINGE SUBQ SCH ×2 (09:08→21:00)
[2021-01-02] MEDS: POTASSIUM CHLORIDE 20 MEQ TABLET PO SCH (09:08)
[2021-01-02] MEDS: FAMOTIDINE 20 MG TABLET PO SCH (09:08)
[2021-01-02] MEDS: carvediloL 3.125 MG TABLET PO SCH ×2 (09:08→20:56)
[2021-01-02] MEDS: SODIUM CHLORIDE FLUSH 0.9% 10 ML SYRINGE IVP SCH ×3 (09:09→23:56)
[2021-01-02] MEDS: POTASSIUM CHLOR 10 MEQ/100 ML 10 MEQ/100 ML BAG IV SCH ×3 (10:02→14:18)
[2021-01-02] MEDS: ATORVASTATIN 40 MG TABLET PO SCH (20:56)
[2021-01-02] MEDS: LOSARTAN 50 MG TABLET PO SCH ×2 (20:56→21:07)
[2021-01-03] MEDS: LEVOTHYROXINE 25 MCG TABLET PO SCH (06:10)
[2021-01-03 06:16] LABS: HGB - HEMOGLOBIN 10.5 g/dL (12.0-16.0); MEAN CORPUSCULAR HEMOGLOBIN 28.2 pg (27.0-31.0); MEAN CORPUSCULAR HGB CONC 31.8 g/dL (32.0-36.0); MEAN CORPUSCULAR VOLUME 88.5 fL (81.0-99.0); MEAN PLATELET VOLUME 11.7 fL (7.9-10.8); RED BLOOD COUNT 3.73 10^6/uL (4.20-5.40); WHITE BLOOD COUNT 11.2 x10^3/uL (4.8-10.8)
[2021-01-03 06:30] LABS: CALCIUM 8.6 mg/dL (8.5-10.3); CREATININE 1.1 mg/dL (0.4-1.0); MAGNESIUM 2.1 mg/dL (1.7-2.8); PHOSPHORUS 3.1 mg/dL (2.5-4.6); POTASSIUM 3.3 mmol/L (3.5-5.0)
[2021-01-03] MEDS ORDERED: POTASSIUM CHLORIDE 20 MEQ TABLET PO ONE (08:00)
[2021-01-03] MEDS: INSULIN ASPART 300 UNIT/3 ML PEN SUBQ SCH ×2 (08:25→11:51)
[2021-01-03] MEDS: ENOXAPARIN 100 MG/ML SYRINGE SUBQ SCH (08:26)
[2021-01-03] MEDS: SODIUM CHLORIDE FLUSH 0.9% 10 ML SYRINGE IVP SCH (08:26)
[2021-01-03] MEDS: SPIRONOLACTONE 25 MG TABLET PO SCH (08:27)
[2021-01-03] MEDS: ASPIRIN EC 81 MG TABLET PO SCH (08:27)
[2021-01-03] MEDS: carvediloL 3.125 MG TABLET PO SCH (08:27)
[2021-01-03] MEDS: FAMOTIDINE 20 MG TABLET PO SCH (08:28)
[2021-01-03] MEDS ORDERED: polyethylene glycoL 3350 17 GM PACKET PO SCH (09:00)
[2021-01-03] MEDS ORDERED: FUROSEMIDE 20 MG TABLET PO SCH (09:00)
[2021-01-03 11:43] VITALS: BP 88/66
[2021-01-03] MEDS: POTASSIUM CHLORIDE 20 MEQ TABLET PO SCH (11:44)
--- NOTE | 2021-01-03 12:07 | Discharge Plan ---
Discharge Plan Problem Reviewed?: Yes Disposition: 02 Transfer Acute Care Hosp Condition: Stable No Smoking: If you smoke, Please STOP! Call for help. Follow-up with: Blossom Linder PA-C [Primary Care Provider] -
--- NOTE | 2021-01-03 12:08 | DISCHARGE SUMMARY ---
Discharge Summary Admit Date: 01/01/21 Discharge Date: 01/03/21 Discharging Provider: Dr Nallely Knight Primary Care Provider: TRISHA Linder Code Status: Attempt Resuscitation Condition at Discharge: Stable Discharge Disposition: 02 Transfer Acute Care Hosp Discharge Facility Name: [facility] History of Present Illness: From the admission H&P of Dr Claude Hoover: Patient is a 75-year-old female with a past medical history of obesity, hypertension, hyperlipidemia, and hypothyroidism, who denies any known history of cardiac disease who presents to the emergency room with relatively abrupt onset of dyspnea on exertion since earlier this evening. Patient states over the last month or longer she has had a progressive shortness of breath on exertion and orthopnea that was relatively mild but has worsened but tonight had an abrupt sudden onset when she went to the bathroom after going to bed and relates she was having significant difficulty breathing. She was brought in by paramedics and found to be saturating 80% on room air and demonstrating evidence of acute respiratory distress with accessory muscle use. Per Dr. Alvarado in the ED her presentation initially suggested she may need to be intubated due to significant work of breathing. However in the ER she responded well to CPAP and has since stabilized. Patient denies any chest pain, fever, nausea, vomiting, chills. In the ED work- up was remarkable for leukocytosis, WBC of 14.6, as well as elevated troponin of 1387.5 along with a BNP of 637. She also had mild hyponatremia at 133 and mild hypokalemia at 3.3 and a creatinine of 1.6 with an estimated GFR of 31 with an unknown baseline. At the time admission was requested patient was able to speak in a relatively full sentences without distress or difficulty and much more comfortable with BiPAP. Chest x-ray was done which showed suggestion of probable CHF exacerbation. She received a dose of furosemide 40 mg IV in the ED. Covid test was negative. Given patient's respiratory distress with chest x-ray findings suggestive of CHF and elevated troponin level, the ED provider did reach out to [facility] for cardiology consideration of transfer however their on-call intelligence officer basic did not feel that at this point there was imminent need for transfer given that she improved, and suggested following cardiac enzymes, considering stress test and getting an Echocardiogram and providing medical diuresis and to call back for transfer should there be any new developments or worsening in her clinical status. As far as anticoagulation he left the decision to us but did not feel like this was absolutely necessary and felt like her cardiac enzyme elevation was less likely due to ischemia and more likely due to CHF exacerbation and should respond well to diuresis. The patient is being admitted to the [facility] on BIPAP. She requests Full Code status. - HOSPITAL COURSE Hospital Course: (1) Acute non-ST elevation myocardial infarction (NSTEMI) When I met her and we discussed that she ruled in for an GA, she did admit that there were episodes of chest pressure in the left anterior chest associated with diaphoresis when she was short of breath on the night of admission. Her Troponins increased substantially and peaked at 4400+. EKG changes showed diffuse ST segment abnormalities and she already had QS waves in the anteroseptal leads. An Echo was done and showed LVEF of 35%. She was continue on daily aspirin, started on therapeutic Lovenox twice daily and beta-kelly and her statin was changed to Lipitor. We continueed with gentle diuresis and sublingual nitroglycerin was ordered prn. We reached out for transfer for coronary angiogram and she was accepted by Cardiology at [facility]. (2) Acute pulmonary edema She presented with shortness of breath and a VQ scan was done and ruled out a PE. Her chest x-ray showed CHF and the etiology appeared to be the acute GA. Sujit meza continued to get iv diuretics and lost 1.5 kg in weight, at the time of transfer. She was able to lie flat and was saturating well on room air. (3) Acute combined systolic and diastolic congestive heart failure Her BNP increased initially from 300s to 800s, which was probably a delay in lab findings compared to clinical status. An Echo was done that showed LVEF of 35%. She also has significant diastolic dysfunction by Echo. We continued Lasix, started spironolactone, and Coreg, and a low-dose of COURTNEY, watching her very soft blood pressure. All meds were staggered. (4) Cardiorenal syndrome She presented with a creatinine of 1.6 and that improved to 1.2 with diuresis,consistent with cardiorenal syndrome. (5) Hyponatremia She had hypervolemic hyponatremia. She may also have had a component of pseudohyponatremia from very elevated glucose of 363 on admission. We continued Lasix and added spironolactone and ordered a fluid restriction of 2000 cc/day total. (6) Hypokalemia Related to aggressive IV diuresis and was replaced. (7) Hx of essential hypertension She was on a combination of HCTZ metoprolol tablet at home. Here she was on Coreg as her beta-kelly and the HCTZ was stopped since she needed Lasix plus Spironolactone. With this her blood pressures were actually "soft", at 102 systolic. Her meds needed to be staggered. (8) New onset diabetes mellitus She presented with a very elevated serum glucose level of 363. The daughter revealed that the patient eats sugar all the time. Her A1c came back at 5.9. She was put on a sliding scale insulin and carb controlled diet and dietary instruction was done. She did not get Metformin because she will be undergoing angiogram requiring dye. (9) Borderline DM Her A1c was checked and is 5.9. She got RN teaching about DM diet-control and s he was started on carb controlled diet while here. (10) Hypothyroidism Her TSH and T4 levels were acceptable. We continued her home dose of Synthroid - ALLERGIES Allergies/Adverse Reactions: Allergies Allergy/AdvReac Type Severity Reaction Status Date / Time No Known Drug Allergies Allergy Verified 10/17/16 13:43 - MEDICATIONS Home Medications: Ambulatory Orders Medication Instructions Recorded Confirmed Albuterol Sulf [Ventolin Hfa 1 - 2 puffs INH Q4HR PRN 01/01/21 01/01/21 Inhaler] Aspirin EC [Ecotrin] 81 mg PO DAILY 01/01/21 01/01/21 Levothyroxine [Synthroid] 50 mcg PO QDAC 01/01/21 01/01/21 Metoprolol/Hydrochlorothiazide 1 each PO DAILY 01/01/21 01/01/21 [Lopressor Hct 50-25 Tablet] Simvastatin [Zocor] 20 mg PO DAILY 01/01/21 01/01/21 - PHYSICAL EXAM AT DISCHARGE General Appearance: positive: No acute distress, Alert Eyes Bilateral: positive: Normal inspection, EOMI ENT: positive: ENT inspection nml, No signs of dehydration Neck: positive: Nml inspection, Thyroid nml, No JVD Respiratory: positive: No respiratory distress, Breath sounds nml Cardiovascular: positive: Regular rate & rhythm, No murmur Abdomen: positive: Non-tender, Nml bowel sounds, No distention (Obese) Skin: positive: Warm, Dry Extremities: positive: Nml appearance, No pedal edema Neurologic/Psychiatric: positive: Oriented x3 (Non-focal) - LABS Result Diagrams: 01/03/21 05:11 01/03/21 05:11 - DIAGNOSTIC IMAGING Diagnostic Imaging Results: Final report reviewed - SEPSIS Current Stage of Sepsis: Ruled out - FOLLOW UP Follow Up: This will be determined after her stay at [facility]. - TIME SPENT Time Spent in Discharge (Minutes): 60
== END 2021-01-03 13:45 | disposition short-term general hospital (02) | DRG 280 ==
LOC: EDUNIT# → ED 01:09 → ICU 03:49
PROVIDERS: ADMIT Family Medicine Sports Medicine; ATTEND Internal Medicine
DX: J81.0 Acute pulmonary edema (principal); Z20.822 Contact with and (suspected) exposure to COVID-19; I21.4 Non-ST elevation (NSTEMI) myocardial infarction; I50.41 Acute combined systolic (congestive) and diastolic (congestive) heart failure; J96.01 Acute respiratory failure with hypoxia; I13.0 Hypertensive heart and chronic kidney disease with heart failure and stage 1 through stage 4 chronic kidney disease, or unspecified chronic kidney disease; E87.1 Hypo-osmolality and hyponatremia; N17.9 Acute kidney failure, unspecified; N18.9 Chronic kidney disease, unspecified; E11.22 Type 2 diabetes mellitus with diabetic chronic kidney disease; E87.6 Hypokalemia; E03.9 Hypothyroidism, unspecified; E78.5 Hyperlipidemia, unspecified; E66.9 Obesity, unspecified; Z68.32 Body mass index [BMI] 32.0-32.9, adult; Z82.49 Family history of ischemic heart disease and other diseases of the circulatory system; D72.829 Elevated white blood cell count, unspecified
CPT/HCPCS: 36415; 71045; 78582; 80048; 80053; 80061; 81001; 82803; 83036; 83690; 83735; 83880; 84100; 84439; 84443; 84484; 85025; 85027; 87086; 87150; 87631; 93005; 93306; 94660; 96374; 96375; 99285; A9270; J1650; 0202U; 81003; 83721

== ENCOUNTER 2021-01-03 13:51 | Outpatient (CLI) | payer MEDICARE, OTHER | END 2021-01-03 13:52 | disposition short-term general hospital (02) | LOC: EMS 13:51 | PROVIDERS: ATTEND Internal Medicine | DX: I21.4 Non-ST elevation (NSTEMI) myocardial infarction (principal); J81.0 Acute pulmonary edema | CPT/HCPCS: A0425; A0426 ==

== ENCOUNTER 2021-01-25 19:50 | Outpatient (CLI) | payer MEDICARE, OTHER | END 2021-01-25 19:51 | disposition short-term general hospital (02) | LOC: EMS 19:50 | DX: R00.0 Tachycardia, unspecified (principal) | CPT/HCPCS: A0425; A0427 ==

== ENCOUNTER 2021-02-01 08:00 | Outpatient (CLI) | payer MEDICARE, OTHER ==
[2021-02-01 18:05] LABS: BASOPHILS # (AUTO) 0.1 10^3/uL (0.0-0.1); BASOPHILS % (AUTO) 0.5 %; EOSINOPHILS # (AUTO) 0.7 10^3/uL (0.0-0.7); EOSINOPHILS % (AUTO) 6.5 %; HCT - HEMATOCRIT 34.7 % (37.0-47.0); HGB - HEMOGLOBIN 10.4 g/dL (12.0-16.0); LYMPHOCYTES # (AUTO) 2.3 10^3/uL (1.5-3.5); LYMPHOCYTES % (AUTO) 23.2 %; MEAN CORPUSCULAR HEMOGLOBIN 29.3 pg (27.0-31.0); MEAN CORPUSCULAR VOLUME 97.7 fL (81.0-99.0); MEAN PLATELET VOLUME 10.7 fL (7.9-10.8); MONOCYTES # (AUTO) 0.6 10^3/uL (0.0-1.0); MONOCYTES % (AUTO) 5.8 %; NEUTROPHILS # (AUTO) 6.4 10^3/uL (1.5-6.6); NEUTROPHILS % (AUTO) 63.7 %; PLT - PLATELET COUNT 425 10^3/uL (130-450); RED BLOOD COUNT 3.55 10^6/uL (4.20-5.40); RED CELL DISTRIBUTION WIDTH 18.1 % (12.0-15.0)
[2021-02-01 18:17] LABS: CALCIUM 9.4 mg/dL (8.5-10.3); CREATININE 1.1 mg/dL (0.4-1.0); POTASSIUM 4.9 mmol/L (3.5-5.0)
== END 2021-02-01 23:59 | disposition home or self-care (01) ==
LOC: LAB.WCP 08:00
PROVIDERS: ATTEND Family Medicine
DX: I25.10 Atherosclerotic heart disease of native coronary artery without angina pectoris (principal)
CPT/HCPCS: 36415; 80048; 85025

== ENCOUNTER 2021-10-06 07:21 | Outpatient (CLI) | payer MEDICARE, OTHER ==
[2021-10-06 12:17] LABS: ALBUMIN/GLOBULIN RATIO 1.2 (1.0-2.2); ALKALINE PHOSPHATASE 94 IU/L (42-121); ALT ALANINE AMINOTRANSFERASE 43 IU/L (10-60); AST ASPARTATE AMINOTRANSFERASE 41 IU/L (10-42); BILIRUBIN,TOTAL 0.8 mg/dL (0.2-1.0); BUN - BLOOD UREA NITROGEN 22 mg/dL (6-20); CALCIUM 9.2 mg/dL (8.5-10.3); CARBON DIOXIDE - CO2 29 mmol/L (21-32); CHLORIDE 101 mmol/L (101-111); CHOL/HDL RATIO 3.4 (<4.4); CHOLESTEROL 131 mg/dL; CREATININE 0.8 mg/dL (0.4-1.0); GFR - MDRD 70 (>89); GLUCOSE 97 mg/dL (70-100); HDL CHOLESTEROL 38 mg/dL; LDL CHOLESTEROL,CALCULATED 81 mg/dL; LDL/HDL RATIO 2.1 (<4.4); POTASSIUM 3.9 mmol/L (3.5-5.0); SODIUM 137 mmol/L (135-145); TOTAL PROTEIN 7.3 g/dL (6.7-8.2); TRIGLYCERIDES 61 mg/dL; VLDL CHOLESTEROL 12 mg/dL
[2021-10-06 12:20] LABS: BASOPHILS % (AUTO) 0.5 %; EOSINOPHILS # (AUTO) 0.2 10^3/uL (0.0-0.7); EOSINOPHILS % (AUTO) 3.1 %; HCT - HEMATOCRIT 39.8 % (37.0-47.0); LYMPHOCYTES # (AUTO) 2.6 10^3/uL (1.5-3.5); LYMPHOCYTES % (AUTO) 33.2 %; MEAN CORPUSCULAR HEMOGLOBIN 30.8 pg (27.0-31.0); MEAN CORPUSCULAR HGB CONC 32.7 g/dL (32.0-36.0); MEAN CORPUSCULAR VOLUME 94.3 fL (81.0-99.0); MEAN PLATELET VOLUME 12.1 fL (7.9-10.8); MONOCYTES # (AUTO) 0.5 10^3/uL (0.0-1.0); NEUTROPHILS # (AUTO) 4.3 10^3/uL (1.5-6.6); NEUTROPHILS % (AUTO) 55.9 %; PLT - PLATELET COUNT 256 10^3/uL (130-450); RED BLOOD COUNT 4.22 10^6/uL (4.20-5.40); RED CELL DISTRIBUTION WIDTH 13.3 % (12.0-15.0); WHITE BLOOD COUNT 7.8 x10^3/uL (4.8-10.8)
[2021-10-06 12:24] LABS: THYROID STIMULATING HORMONE 1.4 uIU/mL (0.34-5.60)
== END 2021-10-06 07:22 | disposition home or self-care (01) ==
LOC: LAB.N 07:21
PROVIDERS: ATTEND Physician Assistant Medical
DX: E78.2 Mixed hyperlipidemia (principal); E03.9 Hypothyroidism, unspecified; I10 Essential (primary) hypertension
CPT/HCPCS: 36415; 80053; 80061; 83721; 84443; 85025

== ENCOUNTER 2022-03-29 07:19 | Outpatient (CLI) | payer MEDICARE, OTHER ==
[2022-03-29 12:16] LABS: ALBUMIN 4.1 g/dL (3.2-5.5); ALBUMIN/GLOBULIN RATIO 1.2 (1.0-2.2); ALKALINE PHOSPHATASE 92 IU/L (42-121); ALT ALANINE AMINOTRANSFERASE 32 IU/L (10-60); AST ASPARTATE AMINOTRANSFERASE 34 IU/L (10-42); BILIRUBIN,TOTAL 0.8 mg/dL (0.2-1.0); BUN - BLOOD UREA NITROGEN 20 mg/dL (6-20); CALCIUM 9.5 mg/dL (8.5-10.3); CARBON DIOXIDE - CO2 28 mmol/L (21-32); CHLORIDE 102 mmol/L (101-111); CHOL/HDL RATIO 3.5 (<4.4); CHOLESTEROL 148 mg/dL; CREATININE 0.9 mg/dL (0.4-1.0); GFR - MDRD 61 (>89); GLUCOSE 101 mg/dL (70-100); HDL CHOLESTEROL 42 mg/dL; LDL CHOLESTEROL,CALCULATED 84 mg/dL; POTASSIUM 4.1 mmol/L (3.5-5.0); SODIUM 138 mmol/L (135-145); TOTAL PROTEIN 7.6 g/dL (6.7-8.2); TRIGLYCERIDES 108 mg/dL; VLDL CHOLESTEROL 22 mg/dL
== END 2022-03-29 07:20 | disposition home or self-care (01) ==
LOC: LAB.N 07:19
PROVIDERS: ATTEND Physician Assistant Medical
DX: E78.2 Mixed hyperlipidemia (principal)
CPT/HCPCS: 36415; 80053; 80061; 83721

== ENCOUNTER 2022-07-08 13:40 | Outpatient (CLI) | payer MEDICARE, OTHER ==
--- NOTE | 2022-07-11 10:18 | Mammography Report ---
BILATERAL DIGITAL SCREENING MAMMOGRAM 3D/2D: 07/08/2022 CLINICAL: Routine screening. Comparison is made to exams dated: 04/10/2019 mammogram, 03/26/2018 mammogram, 03/09/2018 mammogram, 1 07/06/2015 mammogram, and 05/05/2015 mammogram - [facility]. There are scattered areas of fibroglandular density in both breasts (category b / 25%-50% glandular t issue). No significant masses, calcifications, or other findings are seen in either breast. There has been no significant interval change. IMPRESSION: NEGATIVE There is no mammographic evidence of malignancy. A 1 year screening mammogram is recommended. Based on the Tyrer Cuzick model (a risk assessment model) the patients lifetime risk is 2.3% and her 10 year risk is 0.0%. According to the ACR, ACS, and NCCN guidelines, an annual breast MRI exam evita g with mammogram is recommended if the patients lifetime risk is 20% or greater. This exam was interpreted at Station ID: [id number]. NOTE: For mammograms, a report in lay terms will be sent to the patient. Approximately 15% of breast malignancies will not be visualized mammographically. In the management of a palpable breast mass, a negative mammogram must not discourage biopsy of a clinically suspicious lesion. Electronically Signed By: Dennis Uribe M.D., jr/hu:07/08/2022 14:27:03 ACR BI-RADS Category 1: Negative 3341F PARENCHYMAL PATTERN: (A) - The breast(s) demonstrate(s) scattered fibroglandular densities. BI-RADS CATEGORY: (1) - 1 RECOMMENDATION: (ANNUAL) - Recommend routine annual screening mammography. [id number] 1 year screening LATERALITY: (B)
== END 2022-07-08 13:41 | disposition home or self-care (01) ==
LOC: DI 13:40
DX: Z12.31 Encounter for screening mammogram for malignant neoplasm of breast (principal)

== ENCOUNTER 2022-08-10 07:59 | Outpatient (CLI) | payer MEDICARE, OTHER ==
[2022-08-10 12:41] LABS: ALBUMIN 4.1 g/dL (3.2-5.5); ALBUMIN/GLOBULIN RATIO 1.3 (1.0-2.2); ALKALINE PHOSPHATASE 67 IU/L (42-121); ALT ALANINE AMINOTRANSFERASE 19 IU/L (10-60); AST ASPARTATE AMINOTRANSFERASE 22 IU/L (10-42); BILIRUBIN,TOTAL 0.8 mg/dL (0.2-1.0); BUN - BLOOD UREA NITROGEN 18 mg/dL (6-20); CALCIUM 9.3 mg/dL (8.5-10.3); CARBON DIOXIDE - CO2 29 mmol/L (21-32); CHLORIDE 103 mmol/L (101-111); CHOLESTEROL 110 mg/dL; CREATININE 0.9 mg/dL (0.4-1.0); GFR - MDRD 61 (>89); GLUCOSE 99 mg/dL (70-100); HDL CHOLESTEROL 37 mg/dL; LDL CHOLESTEROL,CALCULATED 54 mg/dL; LDL/HDL RATIO 1.5 (<4.4); POTASSIUM 4.5 mmol/L (3.5-5.0); SODIUM 138 mmol/L (135-145); TOTAL PROTEIN 7.3 g/dL (6.7-8.2); TRIGLYCERIDES 94 mg/dL; VLDL CHOLESTEROL 19 mg/dL
== END 2022-08-10 08:00 | disposition home or self-care (01) ==
LOC: LAB.N 07:59
PROVIDERS: ATTEND Physician Assistant Medical
DX: E78.2 Mixed hyperlipidemia (principal)
CPT/HCPCS: 36415; 80053; 80061; 83721

== ENCOUNTER 2023-04-10 07:36 | Outpatient (CLI) | payer MEDICARE, OTHER ==
--- NOTE | 2023-04-10 12:26 | DEXA Report ---
PROCEDURE: Dexa Spine and/or Hip INDICATIONS: POST MENOPAUSAL TECHNIQUE: Dual energy x-ray absorptiometry (DXA) was performed on a [employer] System. Regions measur ed are the AP Spine, femoral neck, and if needed forearm. COMPARISON: 05/19/2016 FINDINGS: Lumbar Spine: Bone Mineral Density 1.242 g/cm/cm,T score 0.5. Since the most recent prior study, there has been a statistically significant increase in bone mineral density by 14.8 percent. Left Femoral Neck: Bone Mineral Density 0.944 g/cm/cm, T score -0.7. Previous T score -0.7. Left Hip: Bone Mineral Density 1.062 g/cm/cm,T score 0.4. There has been no statistically significant change in bone mineral density since the prior study. (T score greater or equal to -1.0: NORMAL) (T score from -1.1 to -2.4: OSTEOPENIA) (T score less than or equal to -2.5 to: OSTEOPOROSIS) Impression: By WHO criteria, this patient has normal bone density. Interval statistical increase in bone mineral density of the lumbar spine. No statistical interval ch tio in bone mineral density of the hip. Patients with diagnosis of osteoporosis or osteopenia should have regular bone mineral density assess ment. For those eligible for Medicare, routine testing is allowed once every 2 years. Testing frequ ency can be increased for patients who have rapidly progressing disease or for those who are receivin g medical therapy to restore bone mass. Reviewed by: Koby May MD on 04/10/2023 12:24 PM PDT Approved by: Koby May MD on 04/10/2023 12:24 PM PDT Station ID: [id number]
== END 2023-04-10 07:37 | disposition home or self-care (01) ==
LOC: DI 07:36
PROVIDERS: ATTEND Physician Assistant Medical
DX: Z78.0 Asymptomatic menopausal state (principal)

== ENCOUNTER 2023-08-28 07:17 | Outpatient (CLI) | payer MEDICARE, OTHER ==
[2023-08-28 12:09] LABS: BASOPHILS # (AUTO) 0.1 10^3/uL (0.0-0.1); BASOPHILS % (AUTO) 0.9 %; EOSINOPHILS # (AUTO) 0.2 10^3/uL (0.0-0.7); EOSINOPHILS % (AUTO) 2.4 %; HGB - HEMOGLOBIN 12.8 g/dL (12.0-16.0); LYMPHOCYTES # (AUTO) 2.7 10^3/uL (1.5-3.5); MEAN CORPUSCULAR HEMOGLOBIN 28.1 pg (27.0-31.0); MEAN CORPUSCULAR HGB CONC 30.5 g/dL (32.0-36.0); MEAN CORPUSCULAR VOLUME 92.3 fL (81.0-99.0); MEAN PLATELET VOLUME 11.7 fL (7.9-10.8); MONOCYTES # (AUTO) 0.6 10^3/uL (0.0-1.0); MONOCYTES % (AUTO) 7.3 %; NEUTROPHILS # (AUTO) 4.3 10^3/uL (1.5-6.6); NEUTROPHILS % (AUTO) 54.3 %; PLT - PLATELET COUNT 277 10^3/uL (130-450); RED BLOOD COUNT 4.55 10^6/uL (4.20-5.40); RED CELL DISTRIBUTION WIDTH 14.3 % (12.0-15.0); WHITE BLOOD COUNT 7.8 x10^3/uL (4.8-10.8)
[2023-08-28 12:25] LABS: ALBUMIN 4.2 g/dL (3.2-5.5); ALBUMIN/GLOBULIN RATIO 1.4 (1.0-2.2); ALKALINE PHOSPHATASE 74 IU/L (42-121); ALT ALANINE AMINOTRANSFERASE 21 IU/L (10-60); AST ASPARTATE AMINOTRANSFERASE 22 IU/L (10-42); BILIRUBIN,TOTAL 0.6 mg/dL (0.2-1.0); BUN - BLOOD UREA NITROGEN 16 mg/dL (6-20); CALCIUM 9.8 mg/dL (8.5-10.3); CARBON DIOXIDE - CO2 29 mmol/L (21-32); CHLORIDE 103 mmol/L (101-111); CHOLESTEROL 109 mg/dL; CREATININE 0.9 mg/dL (0.6-1.3); GFR - MDRD 61 (>89); GLUCOSE 94 mg/dL (74-104); HDL CHOLESTEROL 36 mg/dL; LDL CHOLESTEROL,CALCULATED 43 mg/dL; LDL/HDL RATIO 1.2 (<4.4); POTASSIUM 4.1 mmol/L (3.5-4.5); SODIUM 137 mmol/L (135-145); TOTAL PROTEIN 7.2 g/dL (6.4-8.9); TRIGLYCERIDES 148 mg/dL (48-352); VLDL CHOLESTEROL 30 mg/dL
[2023-08-28 12:41] LABS: THYROID STIMULATING HORMONE 1.78 uIU/mL (0.34-5.60)
== END 2023-08-28 07:18 | disposition home or self-care (01) ==
LOC: LAB.N 07:17
PROVIDERS: ATTEND Physician Assistant Medical
DX: E78.2 Mixed hyperlipidemia (principal); E03.9 Hypothyroidism, unspecified; I10 Essential (primary) hypertension
CPT/HCPCS: 36415; 80053; 80061; 83721; 84443; 85025

== ENCOUNTER 2023-09-14 12:45 | Outpatient (CLI) | payer MEDICARE, OTHER ==
--- NOTE | 2023-09-15 09:51 | Mammography Report ---
BILATERAL DIGITAL SCREENING MAMMOGRAM 3D/2D: 09/14/2023 CLINICAL: Routine screening. Comparison is made to exams dated: 07/08/2022 mammogram, 04/10/2019 mammogram, 03/26/2018 mammogram, mammogram, 05/06/2016 mammogram, and 05/05/2015 mammogram - [facility]. Both breasts are heterogeneously dense, which may obscure small masses (category c / 51-75% glandular tissue). There are benign calcifications in both breasts. No significant masses, calcifications, or other findings are seen in either breast. There has been no significant interval change. IMPRESSION: BENIGN There is no mammographic evidence of malignancy. A 1 year screening mammogram is recommended. Based on the Tyrer Cuzick model (a risk assessment model) the patient's lifetime risk is 6.4% and her 10 year risk is 0.0%. According to the ACR, ACS, and NCCN guidelines, an annual breast MRI exam evita g with mammogram is recommended if the patient's lifetime risk is 20% or greater. This exam was interpreted at Station ID: [id number]. NOTE: For mammograms, a report in lay terms will be sent to the patient. Approximately 15% of breast malignancies will not be visualized mammographically. In the management of a palpable breast mass, a negative mammogram must not discourage biopsy of a clinically suspicious lesion. Electronically Signed By: Jatinder trujillo/hu:09/14/2023 15:48:21 letter sent: No_Letter ACR BI-RADS Category 2: Benign Finding(s) 3342F PARENCHYMAL PATTERN: (D) - The breast(s) demonstrate(s) heterogeneously dense fibroglandular mabel lima. BI-RADS CATEGORY: (2) - 2 RECOMMENDATION: (ANNUAL) - Recommend routine annual screening mammography. [id number] 1 year screening LATERALITY: (B)
== END 2023-09-14 12:46 | disposition home or self-care (01) ==
LOC: DI 12:45
DX: Z12.31 Encounter for screening mammogram for malignant neoplasm of breast (principal); R92.333 Mammographic heterogeneous density, bilateral breasts; R92.1 Mammographic calcification found on diagnostic imaging of breast